=== PATIENT | male | born 1940 | race Caucasian/White ===

== ENCOUNTER 2017-09-13 19:04 | Emergency (ER) | payer OTHER ==
[~2017-09-13] VITALS: Ht 170.2 cm; Wt 83.0 kg
[~2017-09-13 19:04] MED LIST: BACTRIM DS1 TAB PO; NORITATE1 % EX; OMEPRAZOLE20 MG PO
[2017-09-14 00:23] VITALS: BP 138/61
== END 2017-09-14 00:24 | DRG 125 ==
LOC: ED 19:04
DX: S02.32XA Fracture of orbital floor, left side, initial encounter for closed fracture (principal); S02.40DA Maxillary fracture, left side, initial encounter for closed fracture; S50.312A Abrasion of left elbow, initial encounter; S80.212A Abrasion, left knee, initial encounter; V18.0XXA Pedal cycle driver injured in noncollision transport accident in nontraffic accident, initial encounter; Y92.488 Other paved roadways as the place of occurrence of the external cause; Y93.55 Activity, bike riding